=== PATIENT | male | born 1985 | race Caucasian/White ===

== ENCOUNTER 2023-03-04 09:01 | Outpatient (AMB) | payer SELFPAY ==
--- NOTE | 2023-03-04 09:17 | MHC.OFFWIV ---
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 Patient denies penile discharge, dysuria, rash or lesion, pelvic pain or adenopathy. He denies any partner reporting testing positive for STD. [facility] Social History Patient Tobacco Use Status: Never used Tobacco Review of Systems Const Reports as per HPI and Reports no additional complaints Reports no additional complaints and Reports as per HPI Skin/Breast Denies lesions Physical Exam Vital Signs: Last Vital Signs Temp 98.1 F 03/04/23 09:22 Pulse 90 03/04/23 09:22 BP 136/82 03/04/23 09:22 Pulse Ox 99 03/04/23 09:22 Oxygen Delivery Method Room Air 03/04/23 09:22 Const General: cooperative, comfortable and no acute distress Orientation/consciousness: patient oriented x3 Resp Effort & Inspection: normal respiratory effort Auscultation: clear to auscultation bilaterally Cardio Rate: regular rate Rhythm: regular rhythm Heart sounds: S1 normal heart sound present and S2 normal heart sound present Male General Exam: Yes normal external exam, No edema, No erythema, No inguinal lymphadenopathy, No Genital lesions present, No perineal induration and No tenderness Penis: normal penis, circumcised, no vesicles and No Genital lesions present Meatus: meatus normal Scrotum: scrotum normal Testes: Testes normal Neuro General: patient oriented x3 Assessment & Plan Assessment & Plan (1) Risky sexual behavior: Code(s): Z72.51 - High risk heterosexual behavior Qualifiers: High risk sexual behavior type: unspecified Qualified Code(s): Z72.51 - High risk heterosexual behavior Plan: Discussed options with patient for STD testing. Herpes simplex virus could still be a potential differential the there is no lesions at this time to culture. Described with patient should watch for this occurs again returned to clinic for treatment. Declines HIV and syphilis testing by blood. Will send urine for CT NG and report results available and treat as necessary. Counseled patient on safe sexual behavior. Orders: Orders CT NG by PCR Today Z72.51 - High risk heterosexual behavior Coding Level of Care Code New Pt Level 3 (52497) Diagnoses Risky sexual behavior Z72.51 High risk sexual behavior type: unspecified
[2023-03-04 09:22] VITALS: BP 136/82; PULSE 90; TEMP 36.7; O2SAT 99
== END 2023-03-04 09:58 | disposition home or self-care (01) ==
PROVIDERS: Visit Provider Physician Assistant
DX: Z72.51 High risk heterosexual behavior (principal)
CPT/HCPCS: 99203

== ENCOUNTER 2023-03-04 17:46 | Outpatient (REF) | payer SELFPAY ==
[2023-03-05 07:13] LABS: CT PCR NOT DETECTED (Not Detect.); NG PCR NOT DETECTED (Not Detect.)
== END 2023-03-04 17:47 | disposition home or self-care (01) ==
LOC: HO.LNP 17:46
PROVIDERS: Visit Provider Physician Assistant
DX: Z72.51 High risk heterosexual behavior (principal)
CPT/HCPCS: 0353U

== ENCOUNTER 2023-05-31 09:31 | Emergency (ER) | payer SELFPAY ==
[2023-05-31 09:38] VITALS: BP 130/68; PULSE 66; RESP 18; TEMP 36.8; O2SAT 97; BMI 29.5
[2023-05-31 09:52] VITALS: BP 126/91; PULSE 70; RESP 16; TEMP 36.8; O2SAT 99
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
== END 2023-05-31 10:31 | disposition home or self-care (01) ==
PROVIDERS: Emergency Provider Emergency Medicine
DX: S16.1XXA Strain of muscle, fascia and tendon at neck level, initial encounter (principal); M75.22 Bicipital tendinitis, left shoulder; R51.9 Headache, unspecified; V43.52XA Car driver injured in collision with other type car in traffic accident, initial encounter; Y92.410 Unspecified street and highway as the place of occurrence of the external cause; Y93.9 Activity, unspecified; Y99.9 Unspecified external cause status
CPT/HCPCS: 99283

== ENCOUNTER 2024-03-17 09:06 | Emergency (ER) | payer OTHER, SELFPAY ==
--- NOTE | ~2024-03-17 | XR_ITS ---
EXAMINATION: XR CHEST CLINICAL INFORMATION: Heavy lifting, chest pain COMPARISON: 10/06/2017 TECHNIQUE: Frontal view of the chest was obtained. FINDINGS: Cardiomediastinal silhouette is normal. There is some bronchial wall thickening without consolidation. No pleural effusion or pneumothorax. XR/XR chest 1V IMPRESSION: Bronchial wall thickening suggests small airways disease. No consolidation. Electronically signed by: Alistair James MD 03/17/2024 11:01 AM EDT
--- NOTE | 2024-03-17 09:24 | ECG_ITS ---
Test Reason : cp Blood Pressure : / mmHG Vent. Rate : 065 BPM Atrial Rate : 065 BPM P-R Int : 144 ms QRS Dur : 094 ms QT Int : 354 ms P-R-T Axes : 033 039 048 degrees QTc Int : 368 ms Normal sinus rhythm ST elevation consider inferior injury or acute infarct ACUTE IN / STEMI Abnormal ECG No previous ECGs available Referred By: Generic ED Physician Electronically Signed By:TRISH WHITLOCK
[2024-03-17 09:32] VITALS: BP 122/66; PULSE 67; RESP 16; TEMP 37; O2SAT 99; BMI 29.5
[2024-03-17] MEDS: Nitroglycerin 2 % Oint 1 GM Packet 1 INCH TRANSDERMA (09:40)
[2024-03-17] MEDS: Aspirin Enteric Coated 81 MG TABLET.DR PO (09:40)
[2024-03-17 09:47] LABS: MANUAL DIFF FLAG NO
[2024-03-17] MEDS: Atorvastatin Calcium 80 MG TABLET PO (09:48)
[2024-03-17 09:50] LABS: Basophils Percent Auto 0.3 % (0-2); Eosinophils Absolute Auto 0.5 X10*3/uL (0.0-0.4); Eosinophils Percent Auto 7.9 % (0-4); Hematocrit 46.5 % (42.0-52.0); Hemoglobin 16.3 g/dl (14.0-18.0); Imm Gran Abs Auto 0.02 X10*3/uL (0.00-0.03); Imm Gran Pct Auto 0.3 % (0.0-0.4); Lymphocytes Absolute Auto 2.2 X10*3/uL (1.2-4.9); Lymphocytes Percent Auto 32.5 % (20-40); Mean Corpuscular HGB Conc 35.1 g/dl (31.0-36.0); Mean Corpuscular Hemoglobin 30.3 pg (27.0-33.0); Mean Corpuscular Volume 86.4 fL (80.0-98.0); Mean Platelet Volume 10.1 fL (9.4-12.4); Monocytes Absolute Auto 0.5 X10*3/uL (0.1-1.2); Monocytes Percent Auto 7.2 % (2-11); Neutrophils Absolute Auto 3.5 x10*3/uL (2.0-8.3); Neutrophils Percent Auto 51.8 % (45-73); Platelet Count 232 X10*3/uL (160-400); Red Blood Count 5.38 X10*6/uL (4.60-5.80); White Blood Count 6.7 X10*3/uL (4.8-10.8)
--- NOTE | 2024-03-17 09:51 | ED_ITS ---
HPI - Chest Pain General Chief Complaint: Chest Pain Stated Complaint: Chest pain Time Seen by Provider: 03/17/24 09:36 Source: patient Mode of arrival: ambulatory Limitations: no limitations History of Present Illness ED Provider: DR. Hathaway HPI narrative: 38-year-old male came in for evaluation of chest pain, chest pain started 3 days ago while he was at the gym exercising pain described as mid chest pain, patient stopped exercising pain has persisted since then waxing and waning mostly with exercising last time he felt a pain this morning when pain was 10/10 when he decided to come to the ED for further evaluation patient had an EKG in triage showed ST elevation in the inferior lead patient was brought into room 19 repeat EKG showed resolution of the ST elevation. Patient was given aspirin, nitro, and nystatin. Patient claimed that he is healthy otherwise no hypertension, no diabetes, no smoking, no family history of young or heart attacks. The case discussed with Dr. Burger who recommended to keep the patient NPO. The case also was discussed with Dr. Elkins intervention doctor naturopathic at [facility]. Related Data Previous Rx's ?Medication ?Instructions ?Recorded mupirocin 2 % topical ointment 1 appl topical BID 10 days #22 04/21/22 grams cyclobenzaprine 10 mg tablet 10 mg PO TID PRN muscle spasm #20 05/31/23 tabs naproxen 500 mg tablet 500 mg PO BID PRN pain #14 tabs 03/17/24 Allergies Allergy/AdvReac Type Severity Reaction Status Date / Time No Known Allergies Allergy Verified 03/17/24 09:33 Review of Systems 2 Review of Systems: All other systems are reviewed and are negative Constitutional: Reports as per HPI and Reports no additional constitutional complaints Eyes: Reports as per HPI and Reports no additional eye complaints Reports system reviewed and no additional complaints, except as documented Cardiovascular: Reports as per HPI and Reports no additional cardiovascular complaints Respiratory: Reports as per HPI and Reports no additional respiratory complaints Gastrointestinal: Reports as per HPI and Reports no additional gastrointestinal complaints Genitourinary: Reports no additional female genitourinary complaints Musculoskeletal: Reports no additional musculoskeletal complaints Skin/Breast: Reports system reviewed and no additional complaints, except as docu Psychiatric: Reports no additional psychiatric complaints Endocrine: Reports no additional endocrine complaints Hematologic/Lymphatic: Reports no additional hematologic/lymphatic complaints Allergic/Immunologic: Reports no additional allergic/immunologic complaints Reports system reviewed and no additional complaints, except as documented and Reports Abnormal speech present [facility] Social History Social History Patient Tobacco Use Status: Never used Tobacco Smoked in Last 30 Days: No Use of substances other than those prescribed or required for medical reasons: Yes Substance Use Type: Marijuana Advance Directives: No Physical Exam 2 Vital Signs: Vital Signs: Last Vital Signs Temp 98.1 F 03/17/24 14:00 Pulse 63 03/17/24 14:00 Resp 14 03/17/24 14:00 BP 111/71 03/17/24 14:00 Pulse Ox 100 03/17/24 14:00 O2 Del Method Room Air 03/17/24 14:00 BMI result Body Mass Index 29.5 Vital signs have been reviewed and appear to be correct. Blood pressure elevated. Heart rate normal. Respiratory rate normal. Temperature normal. Oxygen saturation normal. Appearance: Alert. Oriented X3. No acute distress. Head: Normal external exam. Normocephalic. Atraumatic. No Guardado signs noted. No raccoon eyes noted Eyes: PERRLA. EOMI. Conjunctiva and sclera normal. Eyelids normal. ENT: TM's Normal. Pharynx normal. Uvula midline. Moist mucous membranes. No trismus noted. No drooling noted. No muffled voice noted. Neck: Normal inspection. Neck supple. FROM. No adenopathy. Thyroid Normal. No meningeal signs. No neck mass noted. CVS: Normal heart rate and rhythm. Heart sound normal. No murmurs noted. Pulses normal throughout. Respiratory: No respiratory distress. Painless inspiration. Breath sounds normal. No wheezes/rales/rhonchi noted. Left side sternal reproducible tenderness. No accessory muscle usage noted or decreased air movement noted. Abdomen: Soft and nontender. Bowel sounds normal in all 4 quadrants. No distention noted. No organomegaly noted. No visible injury noted. Back: No CVA tenderness. Full range of motion noted. Skin: Skin warm and dry. Normal skin color. Normal skin turgor. No rashes/lesions/lacerations noted. Extremities: No lower extremity edema. Extremities exhibit normal range of motion. Extremities nontender. Neuro: Oriented X 3. Cranial nerve exam: II-XII are grossly intact No motor deficit. No sensory deficit. Reflexes normal. Course Reevaluation(s) Reevaluation #1: 38-year-old male with no significant risks for coronary artery disease presented with chest pain that has been constant for 3 days pain is worsen with exercising came in was a questionable ST elevation in the inferior lead repeat EKG reveals complete resolution of the ST elevation, cardiology was consulted and patient was evaluated by Dr. Burger at the bedside, had unremarkable echocardiogram at the bedside, troponin is flat x2. Reproducible tenderness on the left side of the chest. Likely patient with costochondritis. D-dimer is negative and patient at low risk for pulmonary embolism. Time: 14:23 Medications Administered Discontinued Medications Generic Name Dose Route Start Last Admin Trade Name Freq PRN Reason Stop Dose Admin Aspirin 81 mg 03/17/24 09:36 03/17/24 09:40 Aspirin Enteric Coated 81 Mg Tablet.Dr PO 03/17/24 09:37 81 mg ONCE ONE Administration Atorvastatin Calcium 80 mg 03/17/24 09:36 03/17/24 09:48 Atorvastatin Calcium 80 Mg Tablet PO 03/17/24 09:37 80 mg ONCE ONE Administration Nitroglycerin 1 inch 03/17/24 09:36 03/17/24 09:40 Nitroglycerin 2 % Oint 1 Gm Packet TRANSDERMA 03/17/24 09:37 1 inch ONCE ONE Administration Medical Decision Making Differential Diagnosis Differential Diagnoses: The differential diagnosis associated with the presentation includes (ACS, CAD, pulmonary embolism, pneumonia, pleural effusion, pneumothorax, severe anemia, electrolyte derangement, costochondritis, myofascial chest pain.) Admission/Observation Consideration of admission/observation: Escalation of care including admission/observation considered Consult Healthcare Provider Management of the patient was discussed with: Quality Control Microbiology Supervisor (Dr. Burger) Lab Data MDM Lab Attestation statement: I reviewed the patient's lab results. 03/17/24 09:43 03/17/24 10:47 Labs: Lab Results 03/17/24 03/17/24 Range/Units 09:43 10:47 WBC 6.7 (4.8-10.8) X10*3/uL RBC 5.38 (4.60-5.80) X10*6/uL Hgb 16.3 (14.0-18.0) g/dl Hct 46.5 (42.0-52.0) % MCV 86.4 (80.0-98.0) fL MCH 30.3 (27.0-33.0) pg MCHC 35.1 (31.0-36.0) g/dl RDW 12.0 (11.0-16.0) % Plt Count 232 (160-400) X10*3/uL MPV 10.1 (9.4-12.4) fL Immature Gran % (Auto) 0.3 (0.0-0.4) % Neut % (Auto) 51.8 (45-73) % Lymph % (Auto) 32.5 (20-40) % [place] % (Auto) 7.2 (2-11) % Eos % (Auto) 7.9 H (0-4) % Baso % (Auto) 0.3 (0-2) % Lymph # (Auto) 2.2 (1.2-4.9) X10*3/uL [place] # (Auto) 0.5 (0.1-1.2) X10*3/uL Eos # (Auto) 0.5 H (0.0-0.4) X10*3/uL Baso # (Auto) 0.0 (0.0-0.2) X10*3/uL Abs Immat Gran (auto) 0.02 (0.00-0.03) X10*3/uL Absolute Neuts (auto) 3.5 (2.0-8.3) x10*3/uL Absolute Nucleated RBC 0.000 (0.0-0.012) X10*3/uL Nucleated RBC % (auto) 0.0 (0.0-0.2) /100WBC PT 11.0 L (11.1-13.3) SEC INR 0.9 (0.9-1.1) D-Dimer High Sensitivty 181 NG/ML Sodium 141 (135-145) mmol/L Potassium 4.9 (3.3-5.1) mmol/L Chloride 106 (96-108) mmol/L Carbon Dioxide 29 (22-29) mmol/L Anion Gap 11 L (12-20) BUN 16 (9-16) mg/dL Creatinine 1.43 H (0.5-1.4) mg/dL Estim Creat Clear Calc 79.5 Estimated GFR 56 Random Glucose 96 (60-115) mg/dL Calcium 9.9 (8.4-10.2) mg/dL Total Creatine Kinase 220 H (38-174) U/L Troponin I High Sens < 2.7 (<3.5-35.0) ng/L B-Natriuretic Peptide 11 (<100) pg/mL Influenza Type A (PCR) NEGATIVE (Negative) Influenza Type B (PCR) NEGATIVE (Negative) RSV RNA Qual (PCR) NEGATIVE (Negative) SARS-CoV-2 RNA (RT-PCR) NEGATIVE (Negative) Independent Interpretation I performed an independent interpretation of an: EKG (EKG 1. Normal sinus rhythm at 65 beats per minute with ST elevation in lead II,III, avf.) and Plain X-Ray (Chest: No acute pathology.) Interpretation: EKG2 normal sinus rhythm at 70 beats per minutes, normal intervals, normal axis deviation, no ST-T changes. Radiology Impression Discussion of test interpretation with radiology: I have reviewed the radiologist's reading. Scores Heart Score History: -0- slightly suspicious ECG: -0- normal Age: -0- < or = 45 Risk factory: -0- no risk factors known Troponin: -0- < or = normal limit Score: 0 Risk: 1.7% Critical Care Time Critical Care Time Critical Care Time: Yes Total Critical Care Time: 60 Attestation: The patient was critically ill with a high probability of imminent or life- threatening deterioration. I spent greater than 30 minutes of discontinuous time evaluating the patient, delivering critical care at the bedside, discussing evaluating data with consultants. Critical care time does not include time spent performing separately billable procedures or teaching. Time spent performing critical care was 60 minutes. Discharge Plan Discharge Clinical Impression: Costalchondritis, Chest wall pain Patient Disposition: Home, Self-Care Instructions: Costochondritis (ED) Prescriptions: New naproxen 500 mg tablet 500 mg PO BID PRN (Reason: pain) Qty: 14 0RF No Action cyclobenzaprine 10 mg tablet 10 mg PO TID PRN (Reason: muscle spasm) Qty: 20 0RF mupirocin 2 % ointment 1 appl topical BID 10 Days Qty: 22 0RF Print Language: Chilean
--- NOTE | 2024-03-17 09:55 | ECG_ITS ---
Test Reason : CHEST PAIN Blood Pressure : / mmHG Vent. Rate : 070 BPM Atrial Rate : 070 BPM P-R Int : 156 ms QRS Dur : 094 ms QT Int : 352 ms P-R-T Axes : 035 037 039 degrees QTc Int : 380 ms Normal sinus rhythm with sinus arrhythmia ST elevation in Inferior leads Abnormal ECG When compared with ECG of 17-MAR-2024 09:22, No significant change was found Referred By: Lupillo Hathaway Electronically Signed By:TRISH WHITLOCK
[2024-03-17 09:56] LABS: INTERNATIONAL NORM RATIO 0.9 (0.9-1.1)
[2024-03-17 10:14] LABS: B Type Natriuretic Peptide 11 pg/mL (<100)
--- NOTE | 2024-03-17 10:28 | CA_ITS ---
Transthoracic Echocardiogram Patient (Last, First, Middle): Adiel Fortune, Gender: Male Date of : 1985 Age: 38 Procedure Date: 03/17/2024 Procedure Type: Transthoracic Echocardiogram Location: ER Height: 175.26 cm Weight: 90.72 kg BSA: 2.07 m2 Heart Rate: bpm BP: 120 / 78 mmHg Bandsaw Operator: TO Referring MD: Lupillo Hathaway MD Symptoms: Abnormal EKG and chest pain Study Quality: Adequate w contrast Conclusions: - Normal left ventricular cavity size. There is normal left ventricular wall thickness. The left ventricular systolic function is low normal. The visually estimated ejection fraction is between 50-55%. - Normal right ventricular cavity size and systolic function. Findings Procedure Information Contrast agent, definity, is being given per protocol without apparent complications. Left Ventricle Normal left ventricular cavity size. There is normal left ventricular wall thickness. The left ventricular systolic function is low normal. The visually estimated ejection fraction is between 50-55%. There is no evidence of regional wall motion abnormalities. Diastolic function is normal for age. Right Ventricle Normal right ventricular cavity size and systolic function. Atria The left atrium is normal in size. The right atrium is normal in size. Aortic Valve Normal aortic valve structure and function. There is no aortic valve stenosis. There is no aortic valve regurgitation. Mitral Valve Normal mitral valve structure and function. There is no mitral valve regurgitation. There is no mitral valve stenosis. Pulmonic Valve The pulmonic valve is normal. There is trace pulmonic valve regurgitation. Tricuspid Valve Normal tricuspid valve structure. There is trace tricuspid valve regurgitation. Tricuspid regurgitation envelope is inadequate for calculation of right ventricular systolic pressure. Normal right atrial pressure. Great Vessels All visible segments of the aorta are normal in size. The visualized portions of the pulmonary artery and branches are normal. Venous The inferior vena cava is normal in size and collapses greater than 50% with inspiration. Pericardium/Pleural There is no evidence of pericardial effusion. Prior Study Comparison No prior study available for comparison. Measurements 2D Linear Measurements IVSd: 1.02 0.6-0.9/0.6-1.0 cm LVIDd: 5.21 3.9-5.3/4.2-5.9 cm LVIDd Index: 2.52 2.4-3.2/2.2-3.1 cm/m2 LVIDs: 3.87 2.0-3.6 cm LVPWd: 0.89 0.7-1.1 cm LA Diam: 3.70 2.7-3.8/3.0-4.0 cm LAIDs Index: 1.79 1.5-2.3 cm/m2 LV Mass: 228.15 67-162/88-224 g LV Mass Index: 110.22 43-95/49-115 g/m2 LVOT Diam: 2.30 3.0+(-)1.3 cm 2D Systolic Function EF 4C: 47.40 >55% EF 2C: 54.90 >55% Mitral Valve MV Pk E: 0.45 MV PK A: 0.24 MV Decel Time: 236.00 E/A: 1.90 E'Lateral: 14.90 E'Medial: 9.57 E/E' Med: 4.70 E/E' Lat: 3.00 PHT: 69.00 MVA PHT: 3.19 Decel Worth: 1.93 Aortic Valve AoV Pk Dawit: 1.16 AoV Mn Dawit: 0.74 AoV VTI: 0.23 AoV Pk Grad: 5.00 Aov Mn Grad: 2.00 LALIT Cont.VTI: 2.57 LVOT LVOT Pk Dawit: 0.75 LVOT Mn Dawit: 0.50 LVOT VTI: 0.14 LVOT Pk Grad: 2.00 LVOT Mn Grad: 1.00 LVOT Diam: 2.30 LVOT Area: 4.15 Diastolic Function MV Pk E: 0.45 MV Pk A: 0.24 E/A: 1.90 E'Medial: 9.57 E/E' Med: 4.70 E' Laterial: 14.90 E/E' Lat: 3.00 Right Ventricle TAPSE (mm): 20.40 TVS' Dawit: 9.79 Tricuspid Valve RA Press: 3.00 Great Vessels Aorta Sinus of Valsalva: 3.35 2.0-3.5 cm Ao Asc: 3.20 2.1-3.4 cm Updated in Other Vendor System with Status of Final Ryan Burger MD electronically signed on 03/17/2024 12:09:41 PM with status of Final
--- NOTE | 2024-03-17 10:34 | P.CONCA_ITS ---
History of Present Illness History of Present Illness Date of Service: 03/17/24 Requesting physician: Lupillo Hathaway Chief complaint: Chest pain Narrative: Pleasant 38 year gentleman who is presenting to emergency department with chest pain. He said couple of days ago while he was doing leg exercises in the gym he started feeling sharp right-sided chest pain along with nausea, and dizziness. He said he stopped exercising but the pain did not go away. Next day he said he did not go to gym but had discomfort in his chest all day. Yesterday he went to the gym and he was doing chest exercises and it has worsening pain. Today he presented to us for further assessment. His ECG is normal. His biomarkers including BNP and troponin both are normal. He has right-sided sharp discomfort before and also has central reproducible chest pain. He is saying that it hurts when he breathes in at the front and back. No fevers or chills but he did have some viral gastroenteritis like symptoms after eating food outside. He said he had some diarrhea today. Echocardiography was done which is showing low normal ejection fraction of 50 55% without any wall motion abnormalities. No pericardial effusion noted. Aorta normal size. D-dimer is below the reference range. [facility] Social History Social History Patient Tobacco Use Status: Never used Tobacco Smoked in Last 30 Days: No Use of substances other than those prescribed or required for medical reasons: Yes Substance Use Type: Marijuana Advance Directives: No Meds Allergies Allergy/AdvReac Type Severity Reaction Status Date / Time No Known Allergies Allergy Verified 03/17/24 09:33 Physical Exam 2 Vital Signs: Vital Signs: Last Vital Signs Temp 98.6 F 03/17/24 09:32 Pulse 67 03/17/24 09:32 Resp 16 03/17/24 09:32 BP 122/66 03/17/24 09:32 Pulse Ox 99 03/17/24 09:32 O2 Del Method Room Air 03/17/24 09:32 BMI result Body Mass Index 29.5 GENERAL APPEARANCE: in no acute distress, pleasant. NECK: no carotid bruit, no jugular venous distention. SKIN: no suspicious lesions, warm and dry. HEART: no murmurs, regular rate and rhythm. LUNGS: clear to auscultation bilaterally. ABDOMEN: soft, nontender. EXTREMITIES: no edema. PERIPHERAL PULSES: equal. NEUROLOGIC: No gross deficits, AAO X 3 Objective Labs and Meds 03/17/24 09:43 03/17/24 10:47 Lab results: Laboratory Results - last 24 hr 03/17/24 09:43 WBC 6.7 RBC 5.38 Hgb 16.3 Hct 46.5 MCV 86.4 MCH 30.3 MCHC 35.1 RDW 12.0 Plt Count 232 MPV 10.1 Immature Gran % (Auto) 0.3 Neut % (Auto) 51.8 Lymph % (Auto) 32.5 Faulkner % (Auto) 7.2 Eos % (Auto) 7.9 H Baso % (Auto) 0.3 Lymph # (Auto) 2.2 Faulkner # (Auto) 0.5 Eos # (Auto) 0.5 H Baso # (Auto) 0.0 Abs Immat Gran (auto) 0.02 Absolute Neuts (auto) 3.5 Absolute Nucleated RBC 0.000 Nucleated RBC % (auto) 0.0 PT 11.0 L INR 0.9 B-Natriuretic Peptide 11 Assessment and Plan (1) Chest pain: Status: Acute Plan [age] gentleman presenting for chest pain. He said he was doing exercise approximately 72 hours ago when he started feeling sharp pain in his chest. This was pleuritic by his description. He has reproducible chest pain currently. His ECG is normal. Troponins are negative. ECHO did not show any wall motion abnormality. No pericardial effusion. Aortic size is normal. Overall appears to be musculoskeletal/noncardiac chest discomfort. Treat symptomatically. He has some acid reflux and some trouble swallowing food as he feels a lump in his throat. Recommend starting him on PPI. Recommend checking a 2nd set of troponin if it is negative he can be discharged back home. He can follow-up with us if any other concerns. Thank you for allowing me to participate in the care of your patient. Please feel free to contact me if you have any questions. Procedures Date of Service Date of Service: 03/17/24
[2024-03-17 10:40] LABS: Influenza A PCR NEGATIVE (Negative); Influenza B PCR NEGATIVE (Negative); Resp Syncy Virus RNA Qual PCR NEGATIVE (Negative); SARS COV2 PCR INHOUSE NEGATIVE (Negative)
[2024-03-17 10:44] LABS: D Dimer High Sensitivity 181 NG/ML
[2024-03-17 11:13] LABS: Anion Gap 11 (12-20); Blood Urea Nitrogen 16 mg/dL (9-16); Calcium 9.9 mg/dL (8.4-10.2); Carbon Dioxide 29 mmol/L (22-29); Chloride 106 mmol/L (96-108); Creatinine Clr Calc Pharmacy 79.5; Estimated Glomerular Filt Rate 56; Glucose Random 96 mg/dL (60-115); Potassium 4.9 mmol/L (3.3-5.1); Sodium 141 mmol/L (135-145)
[2024-03-17 11:30] VITALS: BP 111/70; PULSE 55; RESP 20; TEMP 36.7; O2SAT 99
[2024-03-17 11:30] LABS: Troponin-I High Sensitivity < 2.7 ng/L (<3.5-35.0)
[2024-03-17 11:31] VITALS: BP 111/68
[2024-03-17 14:00] VITALS: BP 111/71; PULSE 63; RESP 14; TEMP 36.7; O2SAT 100
[2024-03-17 14:37] LABS: Troponin-I High Sensitivity < 2.7 ng/L (<3.5-35.0)
[2024-03-17 14:52] VITALS: BP 122/72; PULSE 61; RESP 19; TEMP 37.1; O2SAT 100
== END 2024-03-17 14:57 | disposition home or self-care (01) ==
PROVIDERS: Emergency Provider Emergency Medicine; PCP Internal Medicine
DX: R07.89 Other chest pain (principal); M94.0 Chondrocostal junction syndrome [Tietze]; R06.02 Shortness of breath; Z79.899 Other long term (current) drug therapy; Z03.818 Encounter for observation for suspected exposure to other biological agents ruled out
CPT/HCPCS: 0241U; 36415; 71045; 80048; 82550; 83880; 84484; 85025; 85379; 85610; 93005; 93306; 99285; Q9957

== ENCOUNTER → 2024-03-17 09:59 | Outpatient (BNV) | payer OTHER, SELFPAY | PROVIDERS: Emergency Provider Emergency Medicine; PCP Internal Medicine; Visit Provider Internal Medicine Cardiovascular Disease | DX: R07.9 Chest pain, unspecified (principal) | CPT/HCPCS: 93306; 99283 ==